=== PATIENT | female | born 1985 | race American Indian/Alaskan Native ===

== ENCOUNTER 2021-10-12 00:46 | Inpatient (IN) | payer OTHER ==
[2021-10-12] MEDS ORDERED: Promethazine 25 MG/ML SDV IM PRN (02:20)
[2021-10-12] MEDS ORDERED: Ondansetron 4 MG/2 ML SDV IVPUSH PRN ×2 (02:20→12:18)
[2021-10-12] MEDS ORDERED: Ketorolac 30 MG/ML SDV IVPUSH PRN (02:20)
[2021-10-12] MEDS: HYDROmorphone 1 MG/ML Syringe IVPUSH PRN ×2 (02:30→11:38)
[2021-10-12] MEDS: Lactated Ringers 1,000 ML IV SCH ×3 (02:39→17:17)
[2021-10-12] MEDS: cefOXitin 1 GM in Premix Bag 1 BAG IV SCH ×3 (03:06→18:44)
[2021-10-12 03:19] LABS: CARBON DIOXIDE,CO2 22.2 mmol/L (21.0-32.0)
[2021-10-12] MEDS: Doxycycline 100 MG in Sodium Chloride 0.9% 100 ML IV SCH ×2 (04:06→18:44)
[2021-10-12 04:29] LABS: C. TRACHOMATIS BY PCR NOT DETECTED; N. GONORRHOEAE BY PCR NOT DETECTED
[2021-10-12] MEDS: Acetaminophen/oxyCODONE 325-5 MG Tab PO PRN (06:16)
[2021-10-12] MEDS ORDERED: Scopolamine 1.5 MG Transdermal Patch TOP ONE (11:55)
[2021-10-12] MEDS ORDERED: fentaNYL 50 MCG/ML SDV IVPUSH PRN (12:18)
[2021-10-12] MEDS ORDERED: Metoclopramide 10 MG/2 ML SDV IVPUSH PRN (12:18)
[2021-10-12] MEDS ORDERED: Naloxone 0.4 MG/ML SDV IVPUSH PRN (12:18)
[2021-10-12] MEDS ORDERED: Morphine 2 MG/ML SYRINGE IVPUSH PRN (12:18)
[2021-10-12] MEDS ORDERED: Albuterol 0.083% 2.5 MG/3 ML Neb Soln NEB PRN (12:18)
[2021-10-12] MEDS ORDERED: HYDROmorphone 1 MG/ML Syringe IVPUSH PRN (12:18)
[2021-10-12] MEDS ORDERED: Propofol 200 MG/20 ML SDV ONE ×3 (12:31→14:40)
[2021-10-12] MEDS ORDERED: fentaNYL 100 MCG/2 ML SDV ONE ×2 (12:31→13:56)
[2021-10-12] MEDS ORDERED: Lidocaine 2% 5 ML SDV ONE (12:33)
[2021-10-12] MEDS ORDERED: Rocuronium Bromide 50 MG/5 ML Syringe ONE (12:34)
[2021-10-12] MEDS ORDERED: Ondansetron 4 MG/2 ML SDV ONE ×2 (12:35→14:21)
[2021-10-12] MEDS ORDERED: Dexmedetomidine 200 MCG/2 ML SDV ONE (12:36)
[2021-10-12] MEDS ORDERED: Water For Injection, Sterile 20 ML ONE (12:36)
[2021-10-12] MEDS ORDERED: Glycopyrrolate 0.2 MG/ML SDV ONE (12:36)
[2021-10-12] MEDS ORDERED: Ketamine 500 mg/10 ML MDV ONE (12:41)
[2021-10-12] MEDS ORDERED: ceFAZolin/Dextrose,Iso-Osmotic 2 GM/50 ML Duplex Bag (Premix) ONE (12:47)
[2021-10-12] MEDS ORDERED: Scopolamine 1.5 MG Transdermal Patch ONE (12:50)
[2021-10-12] MEDS ORDERED: Bupivacaine 0.25% 30 ML SDV ONE (13:14)
[2021-10-12] MEDS ORDERED: Dexamethasone 4 MG/ML 5 ML MDV ONE (13:56)
[2021-10-12] MEDS ORDERED: Sugammadex Sodium 200 MG/2 ML VIAL ONE (14:21)
[2021-10-12] MEDS ORDERED: HYDROmorphone 2 MG/ML Syringe ONE (15:09)
[2021-10-12] MEDS ORDERED: cefOXitin 1 GM in Premix Bag 1 BAG IV ONE (17:00)
[2021-10-12] MEDS ORDERED: Doxycycline 100 MG in Sodium Chloride 0.9% 100 ML IV ONE (18:00)
[2021-10-13] MEDS: Acetaminophen/oxyCODONE 325-5 MG Tab PO PRN (05:29)
== END 2021-10-13 11:40 | disposition home or self-care (01) | DRG 742 ==
LOC: MW.MS 00:46
PROVIDERS: ADMIT Obstetrics & Gynecology; ATTEND Obstetrics & Gynecology
PROC: 0UB24ZZ Excision of Bilateral Ovaries, Percutaneous Endoscopic Approach (ICD-10-PCS; principal; 2021-10-12)
PROC: 0UPD4HZ Removal of Contraceptive Device from Uterus and Cervix, Percutaneous Endoscopic Approach (ICD-10-PCS; 2021-10-12)
PROC: 0U9 Female Reproductive System, Drainage (ICD-10-PCS; 2021-10-12)
DX: N83.202 Unspecified ovarian cyst, left side (principal); K66.1 Hemoperitoneum; N83.201 Unspecified ovarian cyst, right side; J45.909 Unspecified asthma, uncomplicated; Z30.432 Encounter for removal of intrauterine contraceptive device; Z86.16 Personal history of COVID-19; Z90.49 Acquired absence of other specified parts of digestive tract
CPT/HCPCS: 00840; 36415; 76856; 76856-26; 80053; 83605; 84703; 85025; 87480; 87491; 87510; 87591; 87660; A9270-GY; J0131; J0690; J0694; J1100; J1170; J2405; J2550; J2704; J3010; J3490; J7120